=== PATIENT | male | born 1955 | race Caucasian/White ===

== ENCOUNTER 2020-08-03 12:49 | Outpatient (REF) | payer MEDICARE, OTHER, SELFPAY ==
--- NOTE | 2020-08-03 12:52 | XR_ITS ---
EXAMINATION: XR SHOULDER, RIGHT CLINICAL INFORMATION: Pain in the shoulder. COMPARISON: None TECHNIQUE: 3 views of the right shoulder including axillary view of the right shoulder. FINDINGS: There is moderate hypertrophic osteoarthritis of the acromioclavicular joint. There is mild arthrosis of the glenohumeral joint manifested by marginal osteophytes along the inferior aspect glenoid without joint space narrowing. The surrounding bone and soft tissues are unremarkable. XR/XR shoulder RT min 2V IMPRESSION: Moderate osteoarthritis of the acromioclavicular joint. Mild glenohumeral arthrosis.
== END 2020-08-03 12:50 | disposition home or self-care (01) ==
LOC: HO.HOSX 12:49
PROVIDERS: Visit Provider Orthopaedic Surgery
DX: M25.512 Pain in left shoulder (principal); M75.110 Incomplete rotator cuff tear or rupture of unspecified shoulder, not specified as traumatic; M24.119 Other articular cartilage disorders, unspecified shoulder
CPT/HCPCS: 73030; 99202

== ENCOUNTER 2020-10-13 06:36 | Day surgery (SDC) | payer MEDICARE, OTHER, SELFPAY ==
[2020-10-09 13:42] VITALS: BMI 28.5
--- NOTE | 2020-10-12 08:36 | HO.ANESPROP2 ---
Documented by User: Yana Beebe 10/12/20 08:37 HPI - Anesthesia Eval Consult details Narrative: 65yo M for Upper Endoscopy and Colonoscopy [facility] Past Medical History Medical History (Updated 10/13/20 @ 07:37 by Cristiane Clark) GERD (gastroesophageal reflux disease) High cholesterol History of Jackson's esophagus Hypertension Incomplete rotator cuff tear Labral tear of shoulder, degenerative Spinal stenosis Family History Family History Mother No problems noted. Father No problems noted. Surgical History Surgical History History of ankle surgery History of colonoscopy History of esophagogastroduodenoscopy (EGD) History of hernia surgery Hx of sinus surgery Social History Social History (Updated 10/09/20 @ 13:43 by Ju Buchanan) Alcohol intake: current Alcohol intake frequency: 0-2 drinks per day Smoking Status: Former smoker Tobacco Type: Cigarette Second Hand Smoke Exposure: No Use of substances other than those prescribed or required for medical reasons: No Advance Directives: No Advance Directives Information Provided: No Advance Directives on File: No Current occupational status: retired Current occupation: right handed Meds Allergies Allergy/AdvReac Type Severity Reaction Status Date / Time No Known Allergies Allergy Verified 10/13/20 06:38 [No Known Allergies*] Home Medications Medication Instructions Recorded Confirmed Type atorvastatin 40 mg tablet 40 mg PO DAILY 08/02/20 10/09/20 History betamethasone, augmented 0.05 % 1 applic TOPICAL DAILY 08/02/20 10/09/20 History topical cream clobetasol 0.05 % topical cream 1 applic TOPICAL BID 08/02/20 10/09/20 History cyclobenzaprine 5 mg tablet 5 mg PO TID PRN 08/02/20 10/09/20 History fluconazole 100 mg tablet 100 mg PO DAILY 08/02/20 08/03/20 History hydrochlorothiazide 25 mg tablet 25 mg PO DAILY 08/02/20 08/03/20 History hydroxyzine HCl 25 mg tablet 25 mg PO TID PRN 08/02/20 08/03/20 History sildenafil 100 mg tablet 100 mg PO DAILY PRN 08/02/20 10/09/20 History tramadol 50 mg tablet 50 mg PO Q8H PRN 08/02/20 08/03/20 History lisinopril 40 mg tablet 40 mg PO DAILY 08/03/20 10/09/20 History nifedipine 30 mg tablet,extended 30 mg PO DAILY 08/03/20 10/09/20 History release omeprazole 20 mg capsule,delayed 20 mg PO DAILY 08/03/20 10/09/20 History release Exam Exam Date and Time: October 12, 2020 0836 Height,Weight and Vital Signs: Height 5 ft 10 in Weight 90.265 kg Assessment and Plan Assessment Anesthesia Assessment: Chart Reviewed Documented by User: Cristiane Clark 10/13/20 07:39 [facility] Past Medical History Medical History (Updated 10/13/20 @ 07:37 by Cristiane Clark) GERD (gastroesophageal reflux disease) High cholesterol History of Jackson's esophagus Hypertension Incomplete rotator cuff tear Labral tear of shoulder, degenerative Spinal stenosis Family History Family History Mother No problems noted. Father No problems noted. Family history of problems with anesthesia: No Surgical History Surgical History History of ankle surgery History of colonoscopy History of esophagogastroduodenoscopy (EGD) History of hernia surgery Hx of sinus surgery History of Problems with Anesthesia: No Social History Social History (Updated 10/09/20 @ 13:43 by Ju Buchanan) Alcohol intake: current Alcohol intake frequency: 0-2 drinks per day Smoking Status: Former smoker Tobacco Type: Cigarette Second Hand Smoke Exposure: No Use of substances other than those prescribed or required for medical reasons: No Advance Directives: No Advance Directives Information Provided: No Advance Directives on File: No Current occupational status: retired Current occupation: right handed Meds Allergies Allergy/AdvReac Type Severity Reaction Status Date / Time No Known Allergies Allergy Verified 10/13/20 06:38 [No Known Allergies*] Home Medications Medication Instructions Recorded Confirmed Type atorvastatin 40 mg tablet 40 mg PO DAILY 08/02/20 10/09/20 History betamethasone, augmented 0.05 % 1 applic TOPICAL DAILY 08/02/20 10/09/20 History topical cream clobetasol 0.05 % topical cream 1 applic TOPICAL BID 08/02/20 10/09/20 History cyclobenzaprine 5 mg tablet 5 mg PO TID PRN 08/02/20 10/09/20 History fluconazole 100 mg tablet 100 mg PO DAILY 08/02/20 08/03/20 History hydrochlorothiazide 25 mg tablet 25 mg PO DAILY 08/02/20 08/03/20 History hydroxyzine HCl 25 mg tablet 25 mg PO TID PRN 08/02/20 08/03/20 History sildenafil 100 mg tablet 100 mg PO DAILY PRN 08/02/20 10/09/20 History tramadol 50 mg tablet 50 mg PO Q8H PRN 08/02/20 08/03/20 History lisinopril 40 mg tablet 40 mg PO DAILY 08/03/20 10/09/20 History nifedipine 30 mg tablet,extended 30 mg PO DAILY 08/03/20 10/09/20 History release omeprazole 20 mg capsule,delayed 20 mg PO DAILY 08/03/20 10/09/20 History release Exam Height,Weight and Vital Signs: Vital Signs Temp Pulse Resp BP Pulse Ox 10/13/20 06:45 98.6 F 69 18 137/93 H 98 Airway Mallampati Class: III TM Dist: >3cm Neck ROM: Full Partial: Upper Heart: RRR Lungs: CTAB Assessment and Plan Assessment Anesthesia Assessment: Anesthesia Plan Discussed and Chart Reviewed Final Anesthetic Review NPO: Yes ASA Class: II Final Preanesthetic Review: No Changes in Pt Med Stat, Meds/Allgs Chart Reviewed, Consent Obtained/Reviewed and Anes Risks/Benef Reviewed Patient Risk: Low Procedure Risk: Low Assessment/Block/Sedation in SS: Assess/Block/Sedation-SS Anesthetic Plan Anesthetic Plan: MAC: Disposition: Standard PACU
[2020-10-13 06:45] VITALS: BP 137/93; PULSE 69; RESP 18; TEMP 37; O2SAT 98
[2020-10-13] MEDS: Lactated Ringers 1,000 ML 100 ML IVCONT (07:02)
--- NOTE | 2020-10-13 07:22 | MHC.SHP ---
Pre-Procedural Eval Section B Chief Complaint: Jackson's,Screening Details of Present Illness: see H&P, no changes Relevant Family History (Specify if Yes): No Relevant Social History: None Present Medications: see Short Stay Collaborative assessment Medical History: No relevant PMH (see H&P no changes) Allergies: Allergies Allergy/AdvReac Type Severity Reaction Status Date / Time No Known Allergies Allergy Verified 10/13/20 06:38 [No Known Allergies*] Review of Systems Sugical H&P ROS: Negative: Constitution, Cardiovascular, Respiratory, Neurological, Psychiatric, Hem-Onc, Allergic/Immunologic, Gastrointestinal, Genitourinary, Musculoskeletal, Integumentary, Endocrine and Eyes/Ears/Nose/Throat Exam Surgical H&P Exam: Normal: HEENT, Normal: Heart, Normal: Lungs, Normal: Extremities, Normal: Abdomen, Normal: Skin and Normal: Neurological Plan Diagnosis/Plan: Unchanged I have reviewed the history and physical and performed a pertinent physical examination on my patient. No changes have occurred unless specified.
[2020-10-13 07:55] VITALS: BP 78/35; PULSE 61; RESP 16; TEMP 36.1; O2SAT 99
--- NOTE | 2020-10-13 07:57 | PM.OP ---
Brief Operative Note Date of Service: 10/13/20 Pre-op diagnosis: barretts, screening Post-op diagnosis: same Procedure: egd colon Surgeon: Phil Joaquin Anesthesia: MAC Estimated blood loss (mL): 5 Pathology: other (esophagus bxs) Condition: stable Disposition: PACU
[2020-10-13 08:10] VITALS: BP 101/59; PULSE 66; RESP 16; O2SAT 96
[2020-10-13 08:25] VITALS: BP 104/69; PULSE 70; RESP 16; TEMP 36.1; O2SAT 96
--- NOTE | 2020-10-13 08:27 | OP_ITS ---
SURGEON: Phil Joaquin MD INDICATIONS: 1. Jackson's esophagus. 2. Colon cancer screening and prior history of adenomatous colon polyps. PREOPERATIVE DIAGNOSIS: POSTOPERATIVE DIAGNOSIS: PROCEDURE PERFORMED: 1. Upper endoscopy with biopsy. 2. Colonoscopy to the terminal ileum. ESTIMATED BLOOD LOSS: COMPLICATIONS: ANESTHESIA: ASSISTANTS: SPECIMENS: MEDICATIONS: Monitored anesthesia care. DESCRIPTION OF PROCEDURE: History and physical performed. The risks and benefits of the procedure were explained to the patient. Informed consent was obtained. The patient was placed in the left lateral decubitus position. The Olympus video gastroscope was introduced into the esophagus, stomach, and duodenum. Examination was performed and the scope was removed. He was repositioned for colonoscopy. A digital rectal exam was performed and was found to be normal. The Olympus pediatric video colonoscope was introduced into the rectum and advanced to the cecum without difficulty. The cecum was identified by transillumination, palpation, and identification of ileocecal valve. Examination was performed and the scope was removed. He tolerated both procedures well and was taken to recovery area in stable condition. FINDINGS: UPPER ENDOSCOPY: Esophagus: The esophagus showed a 1 cm area of Jackson's esophagus with no areas of ulceration or raised lesions. This was at 39 to 40 cm. Biopsies were obtained from the mucosa. Stomach: The stomach was normal. Duodenum: The bulb and second portion were normal. COLONOSCOPY: The terminal ileum was briefly examined and appeared normal. The visualized colonic mucosa was within normal limits without evidence of masses or ulcers. No polyps were identified. The quality of the prep was good. There was mild sigmoid diverticulosis. Retroflexed examination was normal. IMPRESSION: 1. Jackson's esophagus. 2. Negative screening colonoscopy. RECOMMENDATIONS: 1. Follow up the biopsy results. 2. Repeat colonoscopy should be considered in 5 years because of prior history of colon polyps. MD JAVIER Still/ODETTE / [id number]
--- NOTE | 2020-10-13 08:33 | HO.POSTANES ---
Post Anesthesia Evaluation Post Anesthesia Evaluation Vital Signs: Vital Signs Temp Pulse Resp BP Pulse Ox 10/13/20 08:25 97.0 F 70 16 104/69 96 10/13/20 08:10 66 16 101/59 L 96 10/13/20 07:55 97.0 F 61 16 78/35 L 99 10/13/20 06:45 98.6 F 69 18 137/93 H 98 Anesthesia: Monitored Mental Status: Awake Pain Control: Satisfactory Nausea/Vomiting: None Hydration: Adequate Anesthesia-Related Issues: No Anes. Related Issues
== END 2020-10-13 08:44 | disposition home or self-care (01) ==
PROVIDERS: Visit Provider Internal Medicine Gastroenterology
PROC: (CPT 43239; principal; 2020-10-13 07:30)
DX: Z12.11 Encounter for screening for malignant neoplasm of colon (principal); Z86.010 Personal history of colon polyps; K64.8 Other hemorrhoids; K22.70 Barrett's esophagus without dysplasia; K21.9 Gastro-esophageal reflux disease without esophagitis; K57.30 Diverticulosis of large intestine without perforation or abscess without bleeding; I10 Essential (primary) hypertension; Z79.899 Other long term (current) drug therapy; Z87.891 Personal history of nicotine dependence
CPT/HCPCS: 43239; G0105; 88305; J3010

== ENCOUNTER → 2020-10-23 12:51 | Outpatient (BNVA) | payer MEDICARE, OTHER, SELFPAY | PROVIDERS: Visit Provider Orthopaedic Surgery | DX: M24.119 Other articular cartilage disorders, unspecified shoulder (principal); M75.110 Incomplete rotator cuff tear or rupture of unspecified shoulder, not specified as traumatic | CPT/HCPCS: 99212 ==

== ENCOUNTER → 2021-06-14 13:22 | Outpatient (BNVA) | payer MEDICARE, OTHER, SELFPAY | PROVIDERS: Visit Provider Surgery | DX: K40.90 Unilateral inguinal hernia, without obstruction or gangrene, not specified as recurrent (principal) | CPT/HCPCS: 99202 ==

== ENCOUNTER 2021-07-09 06:54 | Day surgery (SDC) | payer MEDICARE, OTHER, SELFPAY ==
[2021-07-03 11:52] VITALS: BMI 26.0
--- NOTE | 2021-07-05 13:16 | P.CONAN_ITS ---
Documented by User: Yana Beebe NP 07/05/21 13:17 HPI - Anesthesia Eval Consult details Narrative: 66yo M for Right Hernia Repair Inguinal with mesh ?daily ETOH PMFSH Active Problems Active Problems: All Active Problems (Updated 07/03/21 @ 11:54 by Ju Buchanan RN) Right inguinal hernia (Acute) Labral tear of shoulder, degenerative (Acute) Incomplete rotator cuff tear (Acute) Past Medical History Medical History COVID-19 vaccine series completed GERD (gastroesophageal reflux disease) High cholesterol History of Jackson's esophagus Hypertension Incomplete rotator cuff tear Labral tear of shoulder, degenerative Spinal stenosis Family History Family History Mother No problems noted. Father No problems noted. Family history of problems with anesthesia: No Surgical History Surgical History History of ankle surgery History of colonoscopy History of esophagogastroduodenoscopy (EGD) History of hernia surgery Hx of sinus surgery History of Problems with Anesthesia: No Social History Social History Are you a primary certified social workers in health care to a significant other at home: No Do you presently have visiting nurse or other home services: No Alcohol intake: current Alcohol intake frequency: 0-2 drinks per day Patient Tobacco Use Status: Former Tobacco user Quit Date: age 30 Tobacco use type: Cigarette Second Hand Smoke Exposure: No Use of substances other than those prescribed or required for medical reasons: Yes Substance Use Frequency: Occasionally Have you been hit, kicked, punched, or otherwise hurt by someone within the past year? If so, by whom?: No Are you DNR?: No Advance Directives Information Provided: Yes (informational brochure mailed) Advance Directives on File: No Recently lost weight without trying: No Eating poorly because of decreased appetite: No Nutrition Risks: No Nutritional Risk Poor oral hygiene: No Current occupational status: retired Current occupation: right handed Meds Allergies Allergy/AdvReac Type Severity Reaction Status Date / Time No Known Allergies Allergy Verified 07/09/21 07:51 [No Known Allergies*] Home Medications Medication Instructions Recorded Confirmed Last Taken Type atorvastatin 40 mg tablet 40 mg PO DAILY 08/02/20 07/03/21 Unknown History betamethasone, augmented 0.05 % 1 applic TOPICAL DAILY 08/02/20 07/03/21 Unknown History topical cream clobetasol 0.05 % topical cream 1 applic TOPICAL BID 08/02/20 07/03/21 Unknown History cyclobenzaprine 5 mg tablet 5 mg PO TID PRN 08/02/20 07/03/21 Unknown History fluconazole 100 mg tablet 100 mg PO DAILY 08/02/20 07/03/21 Unknown History hydrochlorothiazide 25 mg tablet 25 mg PO DAILY 08/02/20 07/03/21 Unknown History hydroxyzine HCl 25 mg tablet 25 mg PO TID PRN 08/02/20 07/03/21 Unknown History sildenafil 100 mg tablet 100 mg PO DAILY PRN 08/02/20 07/03/21 Unknown History tramadol 50 mg tablet 50 mg PO Q8H PRN 08/02/20 07/03/21 Unknown History lisinopril 40 mg tablet 40 mg PO DAILY 08/03/20 07/03/21 10/13/20 06:00 History nifedipine 30 mg tablet,extended 30 mg PO DAILY 08/03/20 07/03/21 10/13/20 06:00 History release omeprazole 20 mg capsule,delayed 20 mg PO DAILY 08/03/20 07/03/21 10/13/20 06:00 History release fluticasone propionate 50 1 spray INTRANASAL BID 06/14/21 07/03/21 Unknown History mcg/actuation nasal spray,suspension Exam Exam Date and Time: July 05, 2021 1316 Height,Weight and Vital Signs: Height 5 ft 11 in Weight 84.822 kg Assessment and Plan Assessment Anesthesia Assessment: Chart Reviewed Final Anesthetic Review Family History of Problems with Anesthesia: No History of Problems with Anesthesia: No Documented by User: Sima River MD 07/09/21 08:31 [facility] Past Medical History Medical History COVID-19 vaccine series completed GERD (gastroesophageal reflux disease) High cholesterol History of Jackson's esophagus Hypertension Incomplete rotator cuff tear Labral tear of shoulder, degenerative Spinal stenosis Family History Family History Mother No problems noted. Father No problems noted. Surgical History Surgical History History of ankle surgery History of colonoscopy History of esophagogastroduodenoscopy (EGD) History of hernia surgery Hx of sinus surgery Social History Social History Are you a primary certified social workers in health care to a significant other at home: No Do you presently have visiting nurse or other home services: No Alcohol intake: current Alcohol intake frequency: 0-2 drinks per day Patient Tobacco Use Status: Former Tobacco user Quit Date: age 30 Tobacco use type: Cigarette Second Hand Smoke Exposure: No Use of substances other than those prescribed or required for medical reasons: Yes Substance Use Frequency: Occasionally Have you been hit, kicked, punched, or otherwise hurt by someone within the past year? If so, by whom?: No Are you DNR?: No Advance Directives Information Provided: Yes (informational brochure mailed) Advance Directives on File: No Recently lost weight without trying: No Eating poorly because of decreased appetite: No Nutrition Risks: No Nutritional Risk Poor oral hygiene: No Current occupational status: retired Current occupation: right handed Meds Allergies Allergy/AdvReac Type Severity Reaction Status Date / Time No Known Allergies Allergy Verified 07/09/21 07:51 [No Known Allergies*] Home Medications Medication Instructions Recorded Confirmed Last Taken Type atorvastatin 40 mg tablet 40 mg PO DAILY 08/02/20 07/03/21 Unknown History betamethasone, augmented 0.05 % 1 applic TOPICAL DAILY 08/02/20 07/03/21 Unknown History topical cream clobetasol 0.05 % topical cream 1 applic TOPICAL BID 08/02/20 07/03/21 Unknown History cyclobenzaprine 5 mg tablet 5 mg PO TID PRN 08/02/20 07/03/21 Unknown History fluconazole 100 mg tablet 100 mg PO DAILY 08/02/20 07/03/21 Unknown History hydrochlorothiazide 25 mg tablet 25 mg PO DAILY 08/02/20 07/03/21 Unknown History hydroxyzine HCl 25 mg tablet 25 mg PO TID PRN 08/02/20 07/03/21 Unknown History sildenafil 100 mg tablet 100 mg PO DAILY PRN 08/02/20 07/03/21 Unknown History tramadol 50 mg tablet 50 mg PO Q8H PRN 08/02/20 07/03/21 Unknown History lisinopril 40 mg tablet 40 mg PO DAILY 08/03/20 07/03/21 10/13/20 06:00 History nifedipine 30 mg tablet,extended 30 mg PO DAILY 08/03/20 07/03/21 10/13/20 06:00 History release omeprazole 20 mg capsule,delayed 20 mg PO DAILY 08/03/20 07/03/21 10/13/20 06:00 History release fluticasone propionate 50 1 spray INTRANASAL BID 06/14/21 07/03/21 Unknown History mcg/actuation nasal spray,suspension Exam Airway Mallampati Class: II TM Dist: >3cm Neck ROM: Full Partial: Upper Heart: rrr Lungs: cta Assessment and Plan Assessment Anesthesia Assessment: Anesthesia Plan Discussed and Chart Reviewed Final Anesthetic Review NPO: Yes ASA Class: II Final Preanesthetic Review: No Changes in Pt Med Stat, Meds/Allgs Chart Reviewed and Consent Obtained/Reviewed Patient Risk: Intermediate Procedure Risk: Intermediate Anesthetic Plan Anesthetic Plan: GA Disposition: Standard PACU
[2021-07-09 07:15] VITALS: BP 143/90; PULSE 91; RESP 16; TEMP 36.6; O2SAT 97
--- NOTE | 2021-07-09 07:32 | MHC.SHP ---
Pre-Procedural Eval Section A Date of Service: 07/09/21 The patient is an INPATIENT: No Changes since office visit: Yes Patient answered all questions; No Cold of Flu in the past 2 weeks, No New Medical Problems and No Changes in Medication The History & Physical has been completed within 30 days and I have reviewed it.: Yes Section B Chief Complaint: right inguinal hernia Allergies: Allergies Allergy/AdvReac Type Severity Reaction Status Date / Time No Known Allergies Allergy Verified 10/23/20 12:59 [No Known Allergies*] Plan Diagnosis/Plan: Unchanged I have reviewed the history and physical and performed a pertinent physical examination on my patient. No changes have occurred unless specified.
[2021-07-09] MEDS: Lactated Ringers 1,000 ML 100 ML IVCONT (07:48)
--- NOTE | 2021-07-09 11:25 | P.OP_ITS ---
Operative Note Operative Note Date of Service: 07/09/21 Narrative: Preoperative diagnosis: Right inguinalhernia Postoperative diagnosis: Same Procedure: Repair of right inguinal hernia with mesh Surgeon: Lm Peres MD Forge Operator: Chelly Centeno PA-C Anesthesia: General LMA Indications for procedure: 66-year-old male patient presenting with a palpable lump in the right groin which increases in size with coughing and straining. On examination patient has a palpable hernia which reduces spontaneously while in the standing position. There is minimal tenderness to palpation. Operative findings:. Small indirect right inguinal hernia Specimen: Lipoma of the cord Estimated blood loss: 5 mL Complications: None Procedure details: Patient was brought to the OR and placed in a supine position. After administering general anesthesia the patient's abdomen was prepped with ChloraPrep and draped in a sterile fashion. A surgical time-out was called the consent confirmed. Patient received preoperative antibiotics and Venodyne boots were in place. Local anesthesia consisting of 0.5% Sensorcaine with epinephrine was infiltrated over the right inguinal ligament. Incision was then made in oblique fashion over the inguinal ligament. This carried out through subcutaneous tissue past Alexander's fashion up to the external oblique aponeurosis. Additional local was infiltrated below the external oblique aponeurosis. This was then incised with a scalpel wide with the Metzenbaum scissors. Spermatic cord was then dissected free from the surrounding inguinal canal and retracted using a Mitzi drain. The floor of the inguinal canal was examined and no direct hernia was identified. Fibers of the cremasteric muscle were then and an indirect sac was identified. This was dissected down to the internal ring. The sac was then opened and the contents reduced. The sac was ligated with a 0 Polysorb suture excised. This was sent to pathology further examination. Attention was then directed to the direct space which was divided between Allis clamps. The preperitoneal space was then created. This was opened further using an open Ray-Bubba sponge. A large PHS mesh was then obtained. The circular underlay was placed into the preperitoneal space and deployed. The overlay was then secured to the pubic tubercle conjoined tendon shelving edge of the inguinal ligament using interrupted 0 Polysorb sutures. A slit was made in the mesh and the mesh were wrapped around the spermatic cord at the internal ring. This was then secured to the shelving edge of the inguinal ligament using the 0 Polysorb suture. This was felt to be loose enough to allow the tip of an index finger to pass. Wounds were checked for hemostasis. Wounds were irrigated with saline solution and suctioned dry. External oblique aponeurosis was then closed using a running 2 0 Polysorb suture. Alexander's fascia and dermis reapproximated using interrupted 3-0 Polysorb sutures. Skin was then closed using a running subcuticular 4-0 Polysorb suture. Steri-Strips 2 x 2 gauze and Tegaderm were then applied. The patient tolerated the procedure well. Sponge, instrument, needle counts reported as correct. Patient was transferred to PACU in stable condition.
== END 2021-07-09 11:45 | disposition home or self-care (01) ==
LOC: HO.SSS 06:54
PROVIDERS: PCP Nurse Practitioner; Visit Provider Surgery
PROC: (CPT 49505; principal; 2021-07-09 08:40)
DX: K40.90 Unilateral inguinal hernia, without obstruction or gangrene, not specified as recurrent (principal); D17.6 Benign lipomatous neoplasm of spermatic cord; K21.9 Gastro-esophageal reflux disease without esophagitis; I10 Essential (primary) hypertension; Z87.19 Personal history of other diseases of the digestive system; Z79.899 Other long term (current) drug therapy; Z87.891 Personal history of nicotine dependence
CPT/HCPCS: 49505; 88304; C1781; J0690; J1100; J1885; J2250; J2405; J3010

== ENCOUNTER → 2021-07-17 13:12 | Outpatient (BNVA) | payer MEDICARE, OTHER, SELFPAY | PROVIDERS: PCP Nurse Practitioner; Referring Provider Nurse Practitioner; Visit Provider Surgery | DX: Z48.815 Encounter for surgical aftercare following surgery on the digestive system (principal); Z87.19 Personal history of other diseases of the digestive system | CPT/HCPCS: 99212 ==

== ENCOUNTER → 2021-08-23 12:55 | Outpatient (BNVA) | payer MEDICARE, OTHER, SELFPAY | PROVIDERS: PCP Nurse Practitioner; Referring Provider Nurse Practitioner; Visit Provider Surgery | DX: Z48.815 Encounter for surgical aftercare following surgery on the digestive system (principal); Z87.19 Personal history of other diseases of the digestive system | CPT/HCPCS: 99212 ==

== ENCOUNTER → 2021-09-20 13:39 | Outpatient (BNVA) | payer MEDICARE, OTHER, SELFPAY | PROVIDERS: PCP Nurse Practitioner; Referring Provider Nurse Practitioner; Visit Provider Surgery | DX: Z48.815 Encounter for surgical aftercare following surgery on the digestive system (principal); Z87.19 Personal history of other diseases of the digestive system | CPT/HCPCS: 99212 ==

== ENCOUNTER 2023-07-29 13:21 | Outpatient (AMB) | payer MEDICARE, OTHER, SELFPAY ==
--- NOTE | 2023-07-29 13:23 | A.OFFVIS_ITS ---
Intake Vital Signs 07/29/23 13:33 Height 5 ft 11 in Weight 200 lb BMI 27.9 BP 168/82 H Blood Pressure Location Lt brachial Position Sitting Pulse 80 Intake Visit Reasons: ? recurrent right inguinal hernia Intake Note: Patient is seen in office for follow up visit, following recurrent right inguinal hernia. Patient c/o: 3 weeks ago, had a wrong turn and has felt a lump since, does not feel a lump in the area, feels in the same area of the previous surgery, no prior imaging, discomfort, denies constipation surgery: 07/09/21 L OV: 09/10/21 Foot Cutter Required: No Accompanied by: Self / Same As Patient Allergies No Known Allergies [No Known Allergies*] Allergy (Verified 07/29/23 13:24) HPI HPI Comments History of Present Illness Details 68-year-old male patient status post rep air of a right inguinal hernia on 07/09/2021 returning today after developing some discomfort in the right groin. He reports being at a rifle range, putting has gone into his holster while performing a twisting motion and suddenly developing a sharp pain in the right groin. He denies feeling any areas of swelling but did note the discomfort above the incision. He denies nausea, vomiting, fever or chills. His bowels have been normal and his appetite normal. He returns today for evaluation for possible recurrent right inguinal hernia. [facility] Medical History COVID-19 vaccine series completed History of Jackson's esophagus Labral tear of shoulder, degenerative Incomplete rotator cuff tear High cholesterol Spinal stenosis Hypertension GERD (gastroesophageal reflux disease) Surgical History H/O right inguinal hernia repair (07/09/20) History of esophagogastroduodenoscopy (EGD) Hx of sinus surgery History of ankle surgery History of hernia surgery History of colonoscopy Family History Mother No problems noted. Father No problems noted. Social History Are you a primary weekend caregiver to a significant other at home: No Do you presently have visiting nurse or other home services: No Alcohol intake: current Alcohol intake frequency: 0-2 drinks per day Patient Tobacco Use Status: Former Tobacco user Quit Date: age 30 Tobacco use type: Cigarette Second Hand Smoke Exposure: No Current occupational status: retired Current occupation: right handed Review of Systems Const All systems reviewed & are unremarkable except as noted in HPI and below Card Denies chest pain, Denies rapid heart rate and Denies irregular heart rhythm Resp Denies cough, Denies pain with cough and Denies stridor GI Reports abdominal pain, Denies change in stool character, Reports constipation, Reports diarrhea, Denies nausea and Denies vomiting Physical Exam Const General: healthy appearing and no acute distress Nutritional Appearance: well nourished Orientation/consciousness: patient oriented x3 Limitations: no limitations Resp Effort & Inspection: normal respiratory effort, no audible wheezes, no cough and no respiratory distress GI Other: Soft, nondistended, well-healed incision in the right groin. Examination in the standing position with Valsalva maneuvers reveals no palpable hernia in the ri ght groin. There is no tenderness to palpation. Palpation (GI): Soft to palpation, nontender and no guarding Skin General skin exam: no rashes or lesions noted Neuro General: patient oriented x3 Extrem General: Yes no clubbing, cyanosis or edema Assessment & Plan Assessment & Plan (1) Right inguinal hernia: Code(s): K40.90 - Unilateral inguinal hernia, without obstruction or gangrene, not specified as recurrent Plan 68-year-old male patient with a previous history of a right inguinal hernia repair returning today for a hernia check. On examination no hernias identified. I recommended a period of rest relaxation with no heavy lifting or strenuous activity. He should return in 1 month for follow-up examination. Coding Level of Care Code Est Pt Level 3 (41419) Diagnoses Right inguinal hernia K40.90
[2023-07-29 13:33] VITALS: BP 168/82; PULSE 80; BMI 27.9
== END 2023-07-29 13:41 | disposition home or self-care (01) ==
PROVIDERS: PCP Nurse Practitioner; Visit Provider Surgery
DX: K40.90 Unilateral inguinal hernia, without obstruction or gangrene, not specified as recurrent (principal)
CPT/HCPCS: 99213

== ENCOUNTER → 2023-07-29 13:21 | Outpatient (BNVA) | payer MEDICARE, OTHER, SELFPAY | PROVIDERS: PCP Nurse Practitioner; Visit Provider Surgery | DX: K40.90 Unilateral inguinal hernia, without obstruction or gangrene, not specified as recurrent (principal) | CPT/HCPCS: 99212 ==

== ENCOUNTER 2023-12-05 10:52 | Day surgery (SDC) | payer MEDICARE, OTHER, SELFPAY ==
[2023-12-03 14:47] VITALS: BMI 27.5
[2023-12-05 11:03] VITALS: BMI 27.4
[2023-12-05 11:12] VITALS: BP 152/72; PULSE 93; RESP 16; TEMP 36.9; O2SAT 97
--- NOTE | 2023-12-05 11:21 | P.CONAN_ITS ---
[facility] Active Problems Active Problems: All Active Problems (Updated 07/03/21 @ 11:54 by Ju Buchanan RN) Right inguinal hernia (Acute) Labral tear of shoulder, degenerative (Acute) Incomplete rotator cuff tear (Acute) Past Medical History Medical History COVID-19 vaccine series completed History of Jackson's esophagus Labral tear of shoulder, degenerative Incomplete rotator cuff tear High cholesterol Spinal stenosis Hypertension GERD (gastroesophageal reflux disease) Family History Family History Mother No problems noted. Father No problems noted. Family history of problems with anesthesia: No Surgical History Surgical History H/O right inguinal hernia repair (07/09/20) History of esophagogastroduodenoscopy (EGD) Hx of sinus surgery History of ankle surgery History of hernia surgery History of colonoscopy History of Problems with Anesthesia: No Social History Social History Are you a primary patient care assistant to a significant other at home: No Do you presently have visiting nurse or other home services: No Alcohol intake: current Alcohol intake frequency: 0-2 drinks per day Patient Tobacco Use Status: Former Tobacco user Quit Date: age 30 Tobacco use type: Cigarette Second Hand Smoke Exposure: No Use of substances other than those prescribed or required for medical reasons: No Are you DNR?: No Advance Directives: No Advance Directives Information Provided: Yes Current occupational status: retired Current occupation: right handed Meds Allergies Allergy/AdvReac Type Severity Reaction Status Date / Time No Known Allergies Allergy Verified 07/29/23 13:24 [No Known Allergies*] Home Medications Medication Instructions Recorded Confirmed Last Taken Type atorvastatin 40 mg tablet 40 mg PO DAILY 08/02/20 12/03/23 Unknown History betamethasone, augmented 0.05 % 1 applic topical DAILY 08/02/20 07/03/21 Unknown History topical cream clobetasol 0.05 % topical cream 1 applic topical BID 08/02/20 07/03/21 Unknown History fluconazole 100 mg tablet 100 mg PO DAILY 08/02/20 07/03/21 Unknown History lisinopril 40 mg tablet 40 mg PO DAILY 08/03/20 12/03/23 12/05/23 History nifedipine 30 mg tablet,extended 30 mg PO DAILY 08/03/20 12/03/23 12/05/23 History release omeprazole 20 mg capsule,delayed 20 mg PO DAILY 08/03/20 12/03/23 10/13/20 06:00 History release fluticasone propionate 50 1 spray intranasal BID 06/14/21 12/03/23 Unknown History mcg/actuation nasal spray,suspension sildenafil 100 mg tablet 100 mg PO DAILY 12/03/23 12/03/23 Unknown History Exam Height,Weight and Vital Signs: Height 5 ft 11 in Weight 89.074 kg Last Vital Signs Temp 98.4 F 12/05/23 11:12 Pulse 93 12/05/23 11:12 Resp 16 12/05/23 11:12 BP 152/72 H 12/05/23 11:12 Pulse Ox 97 12/05/23 11:12 O2 Del Method Room Air 12/05/23 11:12 Airway Mallampati Class: III TM Dist: >3cm Neck ROM: Full Partial: Upper Loose/Missing/Broken Teeth: Yes and Upper Heart: RRR Lungs: CTA Assessment and Plan Assessment Anesthesia Assessment: Anesthesia Plan Discussed and Chart Reviewed Final Anesthetic Review Family History of Problems with Anesthesia: No History of Problems with Anesthesia: No NPO: Yes ASA Class: II Final Preanesthetic Review: Meds/Allgs Chart Reviewed, Consent Obtained/Reviewed and Anes Risks/Benef Reviewed Patient Risk: Low Procedure Risk: Intermediate Anesthetic Plan Anesthetic Plan: MAC: Disposition: Standard PACU
[2023-12-05] MEDS: Lactated Ringers 1,000 ML 50 ML IVCONT (11:28)
--- NOTE | 2023-12-05 12:03 | MHC.SHP ---
Pre-Procedural Eval Section A - 24 Hr Update-Section A only Date of Service: 12/05/23 The patient is an INPATIENT: No Changes since office visit: No Cold of Flu in the past 2 weeks, No New Medical Problems, No Changes in Medication and No Patient answered all questions The patient has been examined within 24 hours of the surgical procedure. The History & Physical has been completed within 30 days and I have reviewed it.: Yes Section B - Complete if H&P > 30 days Chief Complaint: Jackson's esophagus without dysplasia Allergies: Allergies Allergy/AdvReac Type Severity Reaction Status Date / Time No Known Allergies Allergy Verified 07/29/23 13:24 [No Known Allergies*] Plan I have reviewed the history and physical and performed a pertinent physical examination on my patient. No changes have occurred unless specified. Time Spent With Patient Time: Total time managing care of this patient today ____ minutes.
[2023-12-05 12:54] VITALS: BP 102/60; PULSE 65; RESP 16; TEMP 36.9; O2SAT 95
[2023-12-05 13:10] VITALS: BP 136/76; PULSE 72; RESP 16; O2SAT 97
--- NOTE | 2023-12-05 13:23 | OP_ITS ---
DATE OF SERVICE: 12/05/2023 SURGEON: Phil Joaquin MD INDICATIONS: Iron deficiency and Jackson's esophagus. PREOPERATIVE DIAGNOSIS: POSTOPERATIVE DIAGNOSIS: PROCEDURE PERFORMED: Upper endoscopy with biopsy. Colonoscopy to the terminal ileum with biopsy. ESTIMATED BLOOD LOSS: COMPLICATIONS: ANESTHESIA: Monitored anesthesia care. ASSISTANTS: SPECIMENS: DESCRIPTION OF PROCEDURE: A history and physical was performed. The risks and benefits of the procedure were explained to the patient. Informed consent was obtained. The patient was placed in the left lateral decubitus position. The Olympus video gastroscope was introduced into the esophagus, stomach, and duodenum. Examination was performed. The scope was removed. He was repositioned for colonoscopy. A digital rectal exam was performed, and was found to be normal. The Olympus pediatric video colonoscope was introduced into the rectum and advanced to the cecum. The cecum was identified by transillumination, palpation, and identification of ileocecal valve. Examination was performed. The scope was removed. He tolerated both procedures well and was returned to the recovery area in stable condition. FINDINGS: Upper endoscopy: 1. Esophagus: The esophagus showed a 1 cm length of Jackson esophagus with no raised lesions or ulcerated areas. Biopsies were obtained from the EG junction and from 39 cm. 2. Stomach: The stomach was normal. 3. Duodenum: The bulb and 2nd portion were normal. Random 2nd portion biopsies were obtained. Colonoscopy: The terminal ileum was normal. The visualized colonic mucosa was normal. In the cecum was a less than 5 mm sessile polyp, which was removed with biopsy forceps. No other polyps were identified. There was mild sigmoid diverticulosis. Retroflexed examination showed some moderate-sized internal hemorrhoids. IMPRESSION: 1. Jackson esophagus. 2. Colon polyp. RECOMMENDATION: Follow up the biopsy results. MD JAVIER Still/ODETTE / [id number]
== END 2023-12-05 13:50 | disposition home or self-care (01) ==
PROVIDERS: PCP Nurse Practitioner; Visit Provider Internal Medicine Gastroenterology
PROC: (CPT 45380; principal; 2023-12-05 12:20)
DX: E61.1 Iron deficiency (principal); Z86.010 Personal history of colon polyps; D12.2 Benign neoplasm of ascending colon; K57.30 Diverticulosis of large intestine without perforation or abscess without bleeding; K64.8 Other hemorrhoids; K22.70 Barrett's esophagus without dysplasia; K21.9 Gastro-esophageal reflux disease without esophagitis; I10 Essential (primary) hypertension; E78.5 Hyperlipidemia, unspecified; Z98.890 Other specified postprocedural states; Z87.891 Personal history of nicotine dependence; Z79.899 Other long term (current) drug therapy
CPT/HCPCS: 45380; 43239; 88305; 88313; J2704